=== PATIENT | female | born 1985 | race Caucasian/White ===

== ENCOUNTER 2025-02-19 12:30 | Emergency (ER) | payer OTHER, BC ==
[2025-02-19 12:41] VITALS: BP 121/63; PULSE 80
[2025-02-19] MEDS: Ketorolac 30 MG/ML SDV IM ONE (12:50)
[2025-02-19] MEDS: Take Home: Cyclobenzaprine 10 MG Tab, 4 Tab Pack PO ONE (13:30)
== END 2025-02-19 13:57 | disposition home or self-care (01) ==
LOC: VM.ED 12:30
DX: M54.32 Sciatica, left side (principal); Z88.5 Allergy status to narcotic agent; Z79.899 Other long term (current) drug therapy
CPT/HCPCS: 96372; 99283; A9270-GY; J1885

== ENCOUNTER 2025-03-20 11:31 | Emergency (ER) | payer OTHER, BC ==
[2025-03-20 11:47] VITALS: BP 147/95; PULSE 71
[2025-03-20] MEDS: Ketorolac 30 MG/ML SDV IM ONE (12:08)
== END 2025-03-20 12:45 | disposition home or self-care (01) ==
LOC: VM.ED 11:31
DX: M54.42 Lumbago with sciatica, left side (principal); Z88.5 Allergy status to narcotic agent; Z79.899 Other long term (current) drug therapy
CPT/HCPCS: 96372; 99283; 99284; J1885; J3360